=== PATIENT | female | born 1960 | race Caucasian/White ===

== ENCOUNTER 2017-05-13 14:58 | Emergency (ER) | payer BC ==
[2017-05-13 15:35] VITALS: BP 152/66
--- NOTE | 2017-05-13 15:51 | UC ---
Shoulder Pain HPI - HPI Summary HPI Summary: Patient presents s/p traumatic injury to the right shoulder, she fell down last night, slipped on ice, landing backwards and somehow hurt her right shoulder. SHe complains of pain over the anterior aspect of the shoulder and over the side of the deltoid muscle. she states the pain is worse with movement and improves at rest. she denies any numbness or tingling, she denies any pain with movement of the right fingers, hand, wrist, forearm or elbow. she denies any head or neck injury and denies LOC. she complains of spasms that radiate up the side of her neck, and down the back of the shoulder. - History of Current Complaint Chief Complaint: UCUpperExtremity Stated Complaint: FALL, SHOULDER PAIN Time Seen by Provider: 05/13/17 15:32 Hx Obtained From: Patient Hx Last Menstrual Period: menopause ?: No Onset/Duration: Sudden Onset, Lasting Days Timing: Constant Severity Initially: Moderate Severity Currently: Moderate Location Of Pain: Is Discrete @ - right shoulder Character: Aching, Spasmodic Aggravating Factor(s): Movement, Lifting Alleviating Factor(s): Rest - Risk Factors Non-Orthopedic Risk Factor: Negative DVT Risk Factors: Negative Septic Arthritis Risk Factor: Negative - Allergies/Home Medications Allergies/Adverse Reactions: Allergies Allergy/AdvReac Type Severity Reaction Status Date / Time No Known Allergies Allergy Verified 10/20/12 10:41 PMH/Surg Hx/FS Hx/Imm Hx Previously Healthy: Yes Neurological History: Seizures - Surgical History Surgical History: Yes Surgery Procedure, Year, and Place: R wrist fracture 11 yrs ago w/ pins (later removed) - Family History Known Family History: Positive: Hypertension - Social History Occupation: Employed Full-time Alcohol Use: Daily Alcohol Amount: one daily Substance Use Type: None, Marijuana Smoking Status (MU): Never Smoked Tobacco Have You Smoked in the Last Year: No Review of Systems Constitutional: Negative Skin: Negative Eyes: Negative ENT: Negative Respiratory: Negative Cardiovascular: Negative Gastrointestinal: Negative Genitourinary: Negative Motor: Negative Neurovascular: Negative Musculoskeletal: Decreased ROM, Myalgia Neurological: Negative Psychological: Negative Is Patient Immunocompromised?: No All Other Systems Reviewed And Are Negative: Yes Physical Exam Triage Information Reviewed: Yes Appearance: Well-Appearing Vital Signs: Initial Vital Signs Temp 97.7 F 05/13/17 15:27 Pulse 72 05/13/17 15:27 Resp 16 05/13/17 15:27 BP 152/66 05/13/17 15:27 Pulse Ox 100 05/13/17 15:27 Vital Signs Reviewed: Yes Eye Exam: Normal ENT Exam: Normal Neck exam: Normal Neck: Positive: 1 Respiratory Exam: Normal Cardiovascular Exam: Normal Abdominal Exam: Normal Musculoskeletal Exam: Normal Musculoskeletal: Positive: ROM Limited @, Other: - right shoulder extension of 70 degress, with reproducable pain.. neurovasc intact. romintact in all planes with above states pain. Neurological Exam: Normal Psychological Exam: Normal Skin Exam: Normal Shoulder Course/Dx - Course Course Of Treatment: Patient presents s/p traumatic injury of the right shoulder , rom intact, neuro-vasc intact. xrays were obtained and read by myself as negative. She was placed in a shoulder immobizier and pain was addressed. Discharged to follow up with orthopedist in 2-4 days or katty. Patient verbalzied undersanding of and was perico agreement with the discharge plan. - Differential Dx/Diagnosis Differential Diagnosis/HQI/PQRI: AC Separation, Rotator Cuff Injury Provider Diagnoses: ac seperation. rotator cuff injury Discharge - Discharge Plan Condition: Stable Disposition: HOME Prescriptions: HYDROcodone/ACETAMIN 5-325 MG* [[place] 5-325 TAB*] 1 tab PO Q4H PRN #14 tab MDD 6 PRN Reason: shoulder pain Patient Education Materials: Shoulder Sprain (ED) Forms: *Work Release Referrals: Ildefonso Banuelos MD [Medical Doctor] - Monica Skinner MD [Primary Care Provider] -
--- NOTE | 2017-05-13 16:18 | RAD ---
Indication: Right shoulder pain. 3 views of the right shoulder demonstrates calcific tendinitis of the distal supraspinatous tendon. No definite fracture is identified. Mild AC joint arthritis is noted. No pneumothorax is noted. IMPRESSION: Calcific tendinitis distal supraspinatous tendon. No fracture.
== END 2017-05-13 16:30 | disposition home or self-care (01) ==
LOC: UCEAST 14:58
DX: S46.001A Unspecified injury of muscle(s) and tendon(s) of the rotator cuff of right shoulder, initial encounter (principal); S43.101A Unspecified dislocation of right acromioclavicular joint, initial encounter; W00.0XXA Fall on same level due to ice and snow, initial encounter; Y93.01 Activity, walking, marching and hiking; Y92.9 Unspecified place or not applicable; Z77.22 Contact with and (suspected) exposure to environmental tobacco smoke (acute) (chronic); F12.90 Cannabis use, unspecified, uncomplicated
CPT/HCPCS: 99213; G0463

== ENCOUNTER 2018-08-06 06:28 | Day surgery (SDC) | payer BC ==
--- NOTE | 2018-07-29 14:36 | HP ---
PREOPERATIVE HISTORY AND PHYSICAL: DATE OF SURGERY/ADMISSION: 08/06/18 DATE OF OFFICE VISIT/ENCOUNTER: 07/25/18 ATTENDING SURGEON: Charlotte Sinclair MD* (dictated by JOSE F Cool). PROCEDURE: Left wrist carpal tunnel release. HISTORY OF PRESENT ILLNESS: This is a 58-year-old female who complains of numbness and tingling in her left hand that has been ongoing for years. It involves mostly her middle and ring fingers. She had a nerve conduction study performed which showed moderate carpal tunnel syndrome. 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 The symptoms at the left wrist have become worse recently. She has tried wearing a brace but that is minimally helpful. She is interested in pursuing surgical intervention for this problem. PAST MEDICAL HISTORY: 1. History of migraine headaches. 2. Epilepsy. No seizures since 2002. 3. GERD. 4. Anxiety. PAST SURGICAL HISTORY: Right wrist open reduction, internal fixation. CURRENT MEDICATIONS: 1. Aleve 220 mg twice a day p.r.n. 2. Lamotrigine 100 mg 1 tab every morning and 1-1/2 tabs every night. 3. Prempro. 4. Ranitidine 150 mg twice a day. 5. Vitamin B complex daily. 6. Vitamin D complete daily. 7. Zomig 2.5 mg p.r.n. ALLERGIES: No known drug allergies. FAMILY MEDICAL HISTORY: Cancer and diabetes. 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 She was a social smoker, but says she quit 30 years ago. She does smoke marijuana on occasion and she drinks alcohol on regular occasion. REVIEW OF SYSTEMS: Negative for general, cephalic, cardiovascular, respiratory , GI, , other musculoskeletal, integumentary, endocrine, neurologic, and hematologic symptoms. Infectious Disease: Negative for MRSA, hepatitis C, HIV. PHYSICAL EXAMINATION GENERAL: Well-developed, well-nourished, 58-year-old female, in no acute distress. VITAL SIGNS: Height 5 feet 2-3/4 inches, weight 166 pounds, pulse rate 80, blood pressure 140/92. HEENT: Normocephalic, atraumatic. Pupils are equal, round, and reactive to light and accommodation. Extraocular movements are intact. Throat is clear. NECK: Supple. No palpable lymph nodes. PULMONARY: Lungs are clear to auscultation bilaterally. No wheezes, rales, or rhonchi. CARDIOVASCULAR: Regular rate and rhythm. S1, S2. No murmurs, rubs, or gallops. No edema. ABDOMEN: Positive bowel sounds, soft, nontender. NEUROLOGICAL: Alert and oriented x3. Cranial nerves II through XII are intact. MUSCULOSKELETAL: On exam of her left hand, there is no thenar wasting. She has good strength with thumb abduction and good range of motion of her fingers. Negative Tinel sign at the ulnar nerve at the elbow, but positive Tinel sign at the median nerve at the wrist. Positive compression test of the median nerve at the wrist. Sensation is intact to light touch throughout the hand. IMPRESSION: EMG and nerve conduction study shows moderate carpal tunnel syndrome on the left. PLAN: The patient is scheduled to undergo a left wrist carpal tunnel release with Dr. Sinclair on 08/06/18. She will return to the office 10 days postop for followup and suture removal. A prescription for Ultracet was e-scribed to the patient's pharmacy for postoperative pain management. JOSE F COOL [id number]/[facility] #: [id number] NANCY
[~2018-08-06 06:28] MED LIST: Buffered Lidocaine 1% SYRIN* 1 ML/SYRINGE INTRADERM ONE; Lactated Ringers 1000 ML Bag* 1,000 ML IV SCH
[2018-08-06] MEDS ORDERED: Lidocaine 1% INJ* 10 MG/ML 30 ML SDV ONE (07:13)
[2018-08-06] MEDS ORDERED: Propofol* 10 MG/ML 20 ML BTL ONE (07:15)
[2018-08-06] MEDS ORDERED: Lidocaine 2% PF * 5 ML VIAL ONE (07:15)
[2018-08-06] MEDS ORDERED: fentaNYL* 50 MCG/ML 2 ML VIAL (100 MCG VIAL) ONE (07:15)
[2018-08-06 08:06] VITALS: BP 137/84
--- NOTE | 2018-08-06 08:30 | OP ---
CC: Dr. Charlotte Sinclair OPERATIVE REPORT: DATE OF OPERATION: 08/06/18 DATE OF : 62 SURGEON: Charlotte Sinclair MD. PROP AND SCENERY MAKER: JOSE F Cool. ANESTHESIA: Local MAC. PRE-OP DIAGNOSIS: Left carpal tunnel syndrome. POST-OP DIAGNOSIS: Left carpal tunnel syndrome. OPERATIVE PROCEDURE: Left carpal tunnel release. ESTIMATED BLOOD LOSS: Zero. TOURNIQUET TIME: Approximately 10 minutes. INDICATIONS FOR PROCEDURE: Radha is a 58-year-old woman with numbness and tingling in the median ner ve distribution of her left hand. She presents for left carpal tunnel release. DESCRIPTION OF PROCEDURE: The patient was brought to the operating room, was given a sedation anesth etic, and a local infiltration of 10 cc of 1% plain lidocaine in the palm of her left hand. The skin of her left hand and forearm was prepped and draped in the usual sterile fashion. The hand and fore arm were exsanguinated and the tourniquet elevated to 250 mmHg. A longitudinal incision was made in the palm in line with the ring finger. We dissected through the subcutaneous tissue down to the encinas sverse carpal ligament. The ligament was divided sharply with a knife and then more proximally with the scissors. The nerve was dissected free from the surrounding tissue and there was an area of mode rate compression at the midportion of the ligament. The wound was irrigated and the skin edges were reapproximated with 4-0 nylon suture. The wound was dressed with Xeroform, 4x4, Webril, and an Alexei w rap. The patient tolerated the procedure well and was brought to the recovery room in good condition . [id number]/[facility] #: [id number]
[2018-08-06] MEDS ORDERED: Naloxone* 0.4 MG/ML 1 ML VIAL IV PRN (09:10)
== END 2018-08-06 08:22 | disposition home or self-care (01) ==
LOC: OREAST 06:28
PROVIDERS: ATTEND Orthopaedic Surgery
DX: G56.02 Carpal tunnel syndrome, left upper limb (principal); G40.89 Other seizures; F41.9 Anxiety disorder, unspecified
CPT/HCPCS: J2704; J3010

== ENCOUNTER 2019-02-06 18:52 | Emergency (ER) | payer BC ==
[2019-02-06 19:00] VITALS: BP 155/78
--- NOTE | 2019-02-06 19:09 | UC ---
Skin Complaint HPI - HPI Summary HPI Summary: 58 yo female presents with tick bite. She tells me that about 1 hour [employer] she noticed a tick to her left side. Unsure how long it has been attached. Has no symptoms - History of Current Complaint Chief Complaint: UCSkin Time Seen by Provider: 02/06/19 19:09 Stated Complaint: TICK Hx Obtained From: Patient Hx Last Menstrual Period: menopause Onset/Duration: Sudden Onset Current Severity: None Pain Intensity: 0 - Allergy/Home Medications Allergies/Adverse Reactions: Allergies Allergy/AdvReac Type Severity Reaction Status Date / Time No Known Allergies Allergy Verified 02/06/19 19:00 PMH/Surg Hx/FS Hx/Imm Hx GI/ History: Gastroesophageal Reflux Psychological History: Bipolar Disorder - Surgical History Surgical History: Yes Surgery Procedure, Year, and Place: R wrist fracture 11 yrs ago w/ pins (later removed) - Family History Known Family History: Positive: Hypertension - Social History Occupation: Employed Full-time Lives: With Family Alcohol Use: Daily Alcohol Amount: one daily Substance Use Type: Marijuana Substance Use Comment - Amount & Last Used: occasionally Smoking Status (MU): Former Smoker Have You Smoked in the Last Year: No When Did the Patient Quit Smoking/Using Tobacco: 30 years ago Review of Systems All Other Systems Reviewed And Are Negative: No Constitutional: Positive: Negative Skin: Positive: Other - Tick bite left side Respiratory: Positive: Negative Cardiovascular: Positive: Negative Neurological: Positive: Negative Psychological: Positive: Negative Physical Exam - Summary Physical Exam Summary: GENERAL: NAD. WDWN. No pain distress. SKIN: LEFT SIDE: there is a 7mm diameter of mild erythema with central tick attached. Tick not engorged. No ecchymosis. No streaking, bleeding, or drainage. NECK: Supple. Nontender. No lymphadenopathy. CHEST: No accessory muscle use. Breathing comfortably and in no distress. CV: Pulses intact. Cap refill <2seconds NEURO: Alert. PSYCH: Age appropriate behavior. Triage Information Reviewed: Yes Vital Signs: Initial Vital Signs Temp 98.3 F 02/06/19 18:55 Pulse 80 02/06/19 18:55 Resp 16 02/06/19 18:55 BP 155/78 02/06/19 18:55 Pulse Ox 100 02/06/19 18:55 Vital Signs Reviewed: Yes Course/Dx - Course Course Of Treatment: Tick bite left side. Tick removed without difficulty with tick twisters. Discussed likely low risk of lyme transmission, but pt elected to have prophylactic doxycycline in the clinic this evening. Advised to monitor for signs/symptoms of lyme disease and be rechecked if she develops these - Diagnoses Provider Diagnosis: Tick bite Discharge ED - Sign-Out/Discharge Documenting (check all that apply): Patient Departure All imaging exams completed and their final reports reviewed: No Studies - Discharge Plan Condition: Stable Disposition: HOME Patient Education Materials: Lyme Disease (ED), Tick Bite (ED) Referrals: Monica Skinner MD [Primary Care Provider] - Additional Instructions: If you develop a fever, shortness of breath, chest pain, new or worsening symptoms - please call your PCP or go to the ED immediately. Your blood pressure was high at todays visit. Please see your primary provider within 4 weeks for recheck and re-evaluation. TICK BITE: You have been bitten by a tick. Once the tick is removed, these "bites" usually cause no problems. Tick fever, tick paralysis, [place] Spotted fever, and Lyme disease are uncommon -- but you should mention this tick bite to your doctor if you develop unusual symptoms in the next several weeks. If you develop any of the following, please see your physician promptly: (1) Fever, chills, or generalized malaise associated with a headache. (2) A red round area at the site of the bite (or elsewhere) (3) Joint pain, joint swelling or generalized weakness. (4) Redness, swelling, or drainage at the site of the bite. Ticks do not have a typical "head" attached to their body. There are mouth parts sticking out which they use to feed. If there are mouth parts left behind in the wound there is NO increased risk of Lyme infection or disease transmission. If mouth parts remain after tick removal, the best thing to do is apply warm soaks to the area 3-4 times per day to encourage the skin to expel the foreign material. WHEN A TICK IS NOT ENGORGED AND HAS BEEN ON LESS THAN 24 HOURS - THE RISK FOR LYME IS NEGLIGIBLE. YOU CAN REMOVE THE TICK AND OBSERVE THE AREA ON YOUR OWN. - Billing Disposition and Condition Condition: STABLE Disposition: Home
[2019-02-06] MEDS ORDERED: DOXYcycline CAP(*) 100 MG PO ONE (19:49)
== END 2019-02-06 20:17 | disposition home or self-care (01) ==
LOC: UCEAST 18:52
DX: T14.8XXA Other injury of unspecified body region, initial encounter (principal); Z87.891 Personal history of nicotine dependence; F31.9 Bipolar disorder, unspecified; W57.XXXA Bitten or stung by nonvenomous insect and other nonvenomous arthropods, initial encounter; Y92.9 Unspecified place or not applicable
CPT/HCPCS: 99212; A9270-GY; G0463